=== PATIENT | male | born 2000 | race American Indian/Alaskan Native ===

== ENCOUNTER 2021-06-01 13:55 | Emergency (ER) | payer SELFPAY ==
--- NOTE | 2021-06-01 14:38 | Emergency Department Report ---
ED ENT HPI - General Chief complaint: Sore Throat Stated complaint: SORE THROAT Time Seen by Provider: 06/01/21 14:31 Source: patient Mode of arrival: Ambulatory Limitations: No Limitations - History of Present Illness Initial comments: This is a 20-year-old male nontoxic, well nourished in appearance, no acute signs of distress presents to the ED with c/o of sore throat. Patient describes sore throat as swallowing razer blades. Patient denies any fever, chills, headache, stiff neck, nausea, vomiting, chest pain, shortness of breath, numbness or tingling. Patient denies any drooling or hoarseness. Patient denies any allergies or significant past medical history. MD complaint: sore throat -: days(s) Location: throat Severity: mild Severity scale (0 -10): 8 Quality: aching Consistency: constant Improves with: none Worsens with: swallowing Associated Symptoms: pain with swallowing, sore throat. denies: fever, cough, gum swelling, toothache, tinnitus, hearing loss, discharge from ear, rhinorrhea - Related Data Previous Rx's Medication Instructions Recorded Last Taken Type Amoxicillin [Trimox CAP] 500 mg PO Q12H #20 capsule 06/01/21 Unknown Rx Naproxen 500 mg PO Q12H PRN #12 tablet 06/01/21 Unknown Rx Nystas/Diphen/Xyl Visc/Mylanta 15 ml MM Q6H PRN 5 Days #1 bottle 06/01/21 Unknown Rx [Magic Mouthwash] Allergies Allergy/AdvReac Type Severity Reaction Status Date / Time No Known Allergies Allergy Unverified 06/01/21 14:33 ED Dental HPI - General Chief complaint: Sore Throat Stated complaint: SORE THROAT Time Seen by Provider: 06/01/21 14:31 Source: patient Mode of arrival: Ambulatory Limitations: No Limitations - Related Data Previous Rx's Medication Instructions Recorded Last Taken Type Amoxicillin [Trimox CAP] 500 mg PO Q12H #20 capsule 06/01/21 Unknown Rx Naproxen 500 mg PO Q12H PRN #12 tablet 06/01/21 Unknown Rx Nystas/Diphen/Xyl Visc/Mylanta 15 ml MM Q6H PRN 5 Days #1 bottle 06/01/21 Unknown Rx [Magic Mouthwash] Allergies Allergy/AdvReac Type Severity Reaction Status Date / Time No Known Allergies Allergy Unverified 06/01/21 14:33 ED Review of Systems ROS: Stated complaint: SORE THROAT Other details as noted in HPI Comment: All other systems reviewed and negative Constitutional: denies: chills, fever Eyes: denies: eye pain, eye discharge, vision change ENT: denies: ear pain, throat pain Respiratory: denies: cough, shortness of breath, wheezing Cardiovascular: denies: chest pain, palpitations Endocrine: no symptoms reported Gastrointestinal: denies: abdominal pain, nausea, diarrhea Genitourinary: denies: urgency, dysuria Musculoskeletal: denies: back pain, joint swelling, arthralgia Skin: denies: rash, lesions Neurological: denies: headache, weakness, paresthesias Psychiatric: denies: anxiety, depression Hematological/Lymphatic: denies: easy bleeding, easy bruising ED Past Medical Hx - Past Medical History Previous Medical History?: No - Surgical History Past Surgical History?: No - Medications Home Medications: Home Medications Medication Instructions Recorded Confirmed Last Taken Type Amoxicillin [Trimox CAP] 500 mg PO Q12H #20 capsule 06/01/21 Unknown Rx Naproxen 500 mg PO Q12H PRN #12 tablet 06/01/21 Unknown Rx Nystas/Diphen/Xyl Visc/Mylanta 15 ml MM Q6H PRN 5 Days #1 bottle 06/01/21 Unknown Rx [Magic Mouthwash] ED Physical Exam - General Limitations: No Limitations General appearance: alert, in no apparent distress - Head Head exam: Present: atraumatic, normocephalic - Eye Eye exam: Present: normal appearance - Expanded ENT Exam Expanded Ear exam: Present: normal external inspection Mouth exam: Present: normal external inspection, tongue normal. Absent: drooling, trismus, muffled voice Throat exam: Positive: tonsillar erythema, tonsillomegaly (2+ left side), tonsillar exudate (left tonsillar), other (Uvula midline. No tonsillar abscess.). Negative: R peritonsillar mass, L peritonsillar mass - Neck Neck exam: Present: normal inspection, full ROM. Absent: tenderness, meningismus, lymphadenopathy - Respiratory Respiratory exam: Absent: respiratory distress - Cardiovascular Cardiovascular Exam: Present: regular rate - Extremities Exam Extremities exam: Present: full ROM - Back Exam Back exam: Present: full ROM - Neurological Exam Neurological exam: Present: alert, oriented X3, normal gait - Psychiatric Psychiatric exam: Present: normal affect, normal mood - Skin Skin exam: Present: warm, dry, intact, normal color. Absent: rash ED Course Vital Signs 06/01/21 14:32 Temperature 99.4 F Pulse Rate 62 Respiratory 18 Rate Blood Pressure 129/80 O2 Sat by Pulse 99 Oximetry - Reevaluation(s) Reevaluation #1: 06/01/21 14:36 Patient is speaking in full sentences with no signs of distress noted. ED Medical Decision Making - Medical Decision Making This is a 20-year-old male that presents with tonsillitis with exudate. Patient is stable was examined by me. There is no drooling. No tonsillar abscess noted. Uvula is midline. Patient discharged with amoxicillin. Vital signs are stable. Patient is not febrile and normal heart rate. Patient was instructed to Follow-up with a primary care doctor in 3-5 days or if symptoms worsen and continue return to emergency room as soon as possible. At time of discharge, the patient does not seem toxic or ill in appearance. No acute signs of distress noted. Patient agrees to discharge treatment plan of care. No further questions noted by the patient. Critical care attestation.: If time is entered above; I have spent that time in minutes in the direct care of this critically ill patient, excluding procedure time. ED Disposition Clinical Impression: Tonsillitis with exudate Disposition: DC-01 TO HOME OR SELFCARE Is pt being admited?: No Does the pt Need Aspirin: No Condition: Stable Instructions: Tonsillitis, [id number] Additional Instructions: Follow-up with a primary care doctor in 3-5 days or if symptoms worsen and continue return to emergency room as soon as possible. Prescriptions: Nystas/Diphen/Xyl Visc/Mylanta [Magic Mouthwash] 15 ml MM Q6H PRN 5 Days #1 bottle PRN Reason: Sore Throat Naproxen 500 mg PO Q12H PRN #12 tablet PRN Reason: Pain , Severe (7-10) Amoxicillin [Trimox CAP] 500 mg PO Q12H #20 capsule Referrals: PRIMARY MD TAHIR [Referring] - 3-5 Days TISHA AVILA MD [Staff Physician] - 3-5 Days Forms: Work/School Release Form(ED) Time of Disposition: 14:38
[2021-06-01 15:16] VITALS: BP 120/84
== END 2021-06-01 15:35 | disposition home or self-care (01) ==
LOC: ED 13:55
DX: J03.90 Acute tonsillitis, unspecified (principal); Z79.899 Other long term (current) drug therapy
CPT/HCPCS: 99281